=== PATIENT | female | born 2000 | race Two or more races ===

== ENCOUNTER 2024-03-06 02:48 | Emergency (ER) | payer OTHER ==
[~2024-03-06] VITALS: Ht 172.7 cm; Wt 62.6 kg
[2024-03-06] MEDS ORDERED: KETOROLAC TROMETHAMINE 10 MG TABLET PO STA (04:59)
[2024-03-06] MEDS ORDERED: CEFTRIAXONE SODIUM 1,000 MG VIAL IM STA (04:59)
[2024-03-06] MEDS ORDERED: KETO10TA2 PO (05:29)
[2024-03-06] MEDS ORDERED: AMOX-CLAV 875-1 EACH PO (05:29)
[2024-03-06] MEDS ORDERED: MUPIROCIN1 G1 TOP ×2 (05:29→05:30)
== END 2024-03-06 05:33 ==
LOC: ER 02:48
DX: S50.811A Abrasion of right forearm, initial encounter (principal); W54.0XXA Bitten by dog, initial encounter; Y93.89 Activity, other specified; Y92.89 Other specified places as the place of occurrence of the external cause; Y99.9 Unspecified external cause status